=== PATIENT | female | born 1965 | race Caucasian/White ===

== ENCOUNTER → 2019-11-20 | Outpatient (CLI) | payer OTHER ==
[~2019-11-20] MED LIST: ARMOUR THYROID90 M1 PO; CALCIUM + VITA1 EACH PO; MULTIVITAMINS1 EAC6 PO; PREMPHASE 0.621 EAC1 PO; PROBIOTIC1 EAC7 PO; SERTRALINE HCL100 MG PO; TRAMADOL 50 MG50 MG PO; VENTOLIN HFA 1818 GM INH; VITAMIN B-121000 MC2 SUBLING
== END ==
LOC: M.LAB 10:11
PROVIDERS: ATTEND Surgery
DX: Z01.812 Encounter for preprocedural laboratory examination (principal); Z20.828 Contact with and (suspected) exposure to other viral communicable diseases

== ENCOUNTER → 2019-11-23 | Day surgery (SDC) | payer OTHER ==
--- NOTE | 2019-11-28 12:07 | PATH ---
[address] [address] PATHOLOGY RPT PROCEDURE Name: DIONNA BATISTA Room: [facility].#: [id number] Admission: 11/23/19 Date of : 63 Discharge: Report #: [id number] Path Case #: [id number] [facility] Accession Number: [id number] . 01 Material submitted: . perianal area - PERIANAL SKIN TAG . 02 Diagnosis: Perianal skin tag: - Benign skin with moderate nonspecific chronic inflammation, negative for high-grade squamous intraepithelial lesion. (ANU:[facility]; 11/28/2019) [facility] 11/28/2019 1042 Local . 02 Electronically signed: . Chauncey Harvey MD, Pathologist NPI- [id number] . 01 Gross description: . Received in formalin labeled "Batista, Dionna, perianal skin tag" are two fragments of richards-white skin measuring 0.3 x 0.2 x 0.1 and 1.0 x 0.8 x 0.3 cm. The apparent resection margins are inked black. The larger fragment is trisected and the specimen is submitted entirely in A1. ([facility]; 11/26/2019) [facility] 11/26/2019 0827 Local . 02 Pathologist provided ICD-10: K64.4 . 02 CPT . 532280 Specimen Comment: A courtesy copy of this report has been sent to [phone], [phone] Specimen Comment: 1975 Specimen Comment: Report sent to DR CRONIN / DR FROST Performed at: [address] [facility] [address], [place], [place] [id number] MD Rizwan Fitch MD Phone: [phone] Performed at: [address] [facility] [address] [address] [place], [place] [id number] MD Chauncey Harvey MD Phone: [phone]
--- NOTE | 2019-11-29 17:15 | OP ---
[address] [address] OPERATIVE REPORT Name: DIONNA ZULUAGA Room: [facility].#: [id number] Admission: 11/23/19 Attend Phys: Nela Boss DO Discharge: Date of : 63 Report #: [id number] THIS REPORT FOR: //name// cc: Gera Vaughn MD, Matthew W. MD ~ CC: Nela Vaughn DICTATED BY: Huber Monet DO DATE OF SERVICE: 11/23/2019 PREOPERATIVE DIAGNOSIS: Perineal skin tag. POSTOPERATIVE DIAGNOSIS: Perineal skin tag. SURGEON: Nela Boss DO NICKEL PLATER: Huber Monet, PGY5 OPERATION PERFORMED: Excision of perineal skin tag. ANESTHESIA: General and local. ESTIMATED BLOOD LOSS: 5 mL. SPECIMEN: Perineal skin tag. COMPLICATIONS: None. INDICATIONS: The patient is a 54-year-old female with complaints of perineal mass. On exam, she was found to have a perineal skin tag. This was interfering with her cleanliness. Therefore, she was offered excision of the skin tags. She was informed of the risks and benefits and decided to proceed with surgery. DESCRIPTION OF PROCEDURE: After informed consent was obtained, the patient was brought to the operating room and placed in supine position. SCDs were on and running. Preoperative Ancef was delivered. General anesthesia was administered with an LMA. The patient was repositioned into lithotomy. The patient was prepped and draped in the usual sterile fashion. Surgical pause was held to confirm proper patient and procedure. The 0.5% Marcaine was used to anesthetize the perineum. The skin tag was grasped with an Adson, a #15 blade was used to create an elliptical incision around the base of the skin tag. The tag was handed off as specimen. Cautery was used for hemostasis. Two individual stitches of 4-0 Monocryl were used to close the skin. [place] [address] OPERATIVE REPORT Name: DIONNA ZULUAGA Room: [facility].#: [id number] Admission: 11/23/19 Attend Phys: Nela Boss DO Discharge: Date of : 63 Report #: [id number] dressed with Dermabond as well as an ABD and mesh underwear. The patient was repositioned supine, emerged from anesthesia and transferred to the PACU in stable condition. All counts were correct. <ELECTRONICALLY SIGNED> By: Nela Boss DO 11/29/19 1715 [id number] [id number] Boss DO /nt
== END | disposition home or self-care (01) ==
LOC: M.SUR 07:09
PROVIDERS: ATTEND Surgery
DX: K64.4 Residual hemorrhoidal skin tags (principal); J45.909 Unspecified asthma, uncomplicated; K21.9 Gastro-esophageal reflux disease without esophagitis; Z79.899 Other long term (current) drug therapy; Z98.890 Other specified postprocedural states